=== PATIENT | female | born 1950 | race Caucasian/White ===

== ENCOUNTER 2018-04-12 01:02 | Emergency (ER) | payer OTHER, MEDICARE ==
[~2018-04-12] VITALS: Ht 160 cm; Wt 65.0 kg
[2018-04-12] MEDS ORDERED: CLINDAMYCIN HC300 MG PO (03:17)
[2018-04-12] MEDS ORDERED: BACTRIM,SEPT1 TABLET PO (03:17)
[2018-04-12 03:48] VITALS: BP 162/84
== END 2018-04-12 03:48 | disposition home or self-care (01) ==
LOC: EME 01:02
DX: S61.231A Puncture wound without foreign body of left index finger without damage to nail, initial encounter (principal); S50.811A Abrasion of right forearm, initial encounter; S50.812A Abrasion of left forearm, initial encounter; W55.01XA Bitten by cat, initial encounter; W55.03XA Scratched by cat, initial encounter; Z23 Encounter for immunization; Z20.3 Contact with and (suspected) exposure to rabies; Z29.14 Encounter for prophylactic rabies immune globulin
CPT/HCPCS: 99281; 99284